=== PATIENT | male | born 1990 | race Caucasian/White ===

== ENCOUNTER 2022-06-25 13:12 | Emergency (ER) | payer SELFPAY ==
[~2022-06-25] VITALS: Ht 167.6 cm; Wt 60.0 kg
[2022-06-25] MEDS ORDERED: IBUPROFEN 600MG TABLET PO ONE (18:45)
[2022-06-25] MEDS ORDERED: AMOX-494 MT (18:48)
[2022-06-25] MEDS ORDERED: IBUP-2029 MT (18:48)
[2022-06-25 19:35] VITALS: BP 143/80
== END 2022-06-25 19:39 | disposition home or self-care (01) ==
LOC: ER 13:12
DX: K08.89 Other specified disorders of teeth and supporting structures (principal)
CPT/HCPCS: 99281